=== PATIENT | female | born 1950 | race Hispanic/Latino ===

== ENCOUNTER 2024-04-03 07:27 | Observation (INO) | payer OTHER ==
[2024-03-30 14:19] LABS: BASOPHILS # (AUTO) 0.04 K/uL (0.00-0.20); BASOPHILS % (AUTO) 0.4 % (0.0-5.0); EOSINOPHILS # (AUTO) 0.15 K/uL (0.00-0.70); EOSINOPHILS % (AUTO) 1.6 % (0.0-8.0); HEMATOCRIT 42.4 % (36-48); IMMATURE GRANULOCYTE ABSOLUTE 0.03 K/uL (0-1); LYMPHOCYTES # (AUTO) 3.3 K/uL (1.0-4.8); LYMPHOCYTES % (AUTO) 34.7 % (21.0-51.0); MEAN CORPUSCULAR HEMOGLOBIN 30.8 pg (27.0-33.0); MEAN CORPUSCULAR VOLUME 93.2 fL (79-99); MONOCYTES # (AUTO) 0.5 K/uL (0.1-1.0); MONOCYTES % (AUTO) 4.9 % (3.0-13.0); NEUTROPHILS # (AUTO) 5.4 K/uL (1.8-7.7); NEUTROPHILS % (AUTO) 58.1 % (40.0-77.0); PLATELET COUNT (AUTO) 262 K/uL (130-400); RED BLOOD CELL COUNT(AUTO) 4.55 MIL/uL (4.00-5.50); RED CELL DISTRIBUTION WIDTH 16.5 % (11.0-15.5); WHITE BLOOD COUNT (AUTO) 9.4 K/uL (4.8-10.8)
[2024-03-30 14:41] LABS: ALBUMIN 3.7 g/dL (3.5-5.0); POTASSIUM 3.7 mmol/L (3.5-5.1)
[2024-03-30 14:43] LABS: INR 0.95 (0.85-1.15); PROTHROMBIN TIME 11.2 SEC (9.6-11.6)
[2024-03-30 14:44] LABS: PARTIAL THROMBOPLASTIN TIME 26.2 SEC (26.3-35.5)
[2024-03-30 15:22] VITALS: BP 134/67; PULSE 96; RESP 19
[2024-04-03] VITALS (29 sets, daily range): BP systolic 99–131; BP diastolic 50–70; PULSE 71–96; RESP 14–18; O2SAT 96–97
[~2024-04-03] VITALS: Ht 165.1 cm; Wt 100.1 kg
[~2024-04-03 07:27] MED LIST: AEC81 PO; ALBUTEROL SULFATE IH; ASCO100033 PO; ATOR20TA65 PO; BACL10TA PO; BUPR-113 PO; CELE-125 PO; CHOL200074 PO; CYAN-106 PO; DULO60CA64 PO; FOLIC ACID PO; GABA-529 PO; LEVO75TA10 PO; LOSA25TA41 PO; METF-444 PO; METH2.5T6 PO; OMEP40CA21 PO; REMICADE IV; SEMA0.258 SQ; TYLENOL ARTHRITIS PO; ZOLP5TAB8 PO
[2024-04-03 08:10] LABS: APPEARANCE,URINE CLOUDY (CLEAR); BILIRUBIN,URINE NEGATIVE (NEGATIVE); COLOR,URINE YELLOW (YELLOW); GLUCOSE, URINE (UA) NEGATIVE (NEGATIVE); KETONES,URINE NEGATIVE (NEGATIVE); LEUKOCYTE ESTERASE ,URINE 500 Leu/uL (NEGATIVE); NITRATE,URINE NEGATIVE (NEGATIVE); OCCULT BLOOD,URINE NEGATIVE (NEGATIVE); PH,URINE 6.5 (5.0-8.0); PROTEIN,URINE 10 mg/dL (NEGATIVE); UROBILINOGEN,URINE 0.2 mg/dL (0.2-1.0)
[2024-04-03 08:30] LABS: ADD UA MICROSCOPIC YES
[2024-04-03 08:41] LABS: BACTERIA,URINE RARE /HPF (None Seen); MUCUS,URINE FEW LPF (None Seen); SQUAMOUS EPITHELIAL CELL,UR FEW /HPF (0-2); TRANSITIONAL EPI CELLS,URINE MOD /HPF (None Seen); WBC,URINE 26-50 /HPF (0-1)
[2024-04-03] MEDS: CEFAZOLIN SODIUM 2 GM VIAL ONE (09:03)
[2024-04-03] MEDS: 0.9%NACL 1000ML 1,000 ML IV ONE (09:03)
[2024-04-03] MEDS ORDERED: KETOROLAC 30MG VIAL (30MG/ML) ONE (09:11)
[2024-04-03] MEDS ORDERED: ROPIVACAINE 0.5% 5MG/ML 30ML ONE ×2 (09:11→09:28)
[2024-04-03] MEDS: ALBUTEROL 0.083% 2.5 MG/3 ML INH IH ONE (09:21)
[2024-04-03] MEDS ORDERED: KETAMINE 50MG/ML SYRINGE 50 MG/ML DISP.SYRIN ONE (09:28)
[2024-04-03] MEDS ORDERED: LIDOCAINE PF 100MG/5ML (2%) SYRINGE 5ML ONE (09:29)
[2024-04-03] MEDS ORDERED: FENTANYL CITRATE PF 50 MCG/1 ML 2ML VIAL ONE (09:30)
[2024-04-03] MEDS ORDERED: PROPOFOL 10 MG/ML 20ML VIAL IV ONE (09:30)
[2024-04-03] MEDS ORDERED: ROCURONIUM BROMIDE 10MG/1ML 5ML VL ONE ×2 (09:30→10:24)
[2024-04-03] MEDS ORDERED: ONDANSETRON 4MG INJ ONE (09:47)
[2024-04-03] MEDS ORDERED: DEXAMETHASONE SOD PHOSPHATE 10MG/ML 1ML VIAL ONE (09:47)
[2024-04-03] MEDS ORDERED: TRANEXAMIC ACID 1000MG/10ML ONE ×2 (10:05→11:23)
[2024-04-03] MEDS: KETOROLAC 60 MG VIAL (30MG/ML) IM ONE ×2 (10:18)
[2024-04-03] MEDS ORDERED: PHENYLEPHRINE HCL 10 MG/ML 1ML VIAL IV ONE (11:04)
[2024-04-03] MEDS ORDERED: GLYCOPYRROLATE 0.2 MG/ML 5 ML VIAL ONE (11:05)
[2024-04-03] MEDS ORDERED: NEOSTIGMINE METHYLSULFATE 1MG/ML IV ONE (11:05)
[2024-04-03] MEDS ORDERED: ONDANSETRON 4MG INJ IVP PRN (12:00)
[2024-04-03] MEDS ORDERED: TRAMADOL HCL 50 MG TABLET PO PRN (12:00)
[2024-04-03] MEDS ORDERED: POTASSIUM CHLORIDE 10% ELIXIR 20 MEQ/15 ML UDCUP PO PRN (12:00)
[2024-04-03] MEDS ORDERED: POTASSIUM CHLORIDE 20MEQ/100ML 100 ML IV PRN (12:00)
[2024-04-03] MEDS ORDERED: FERROUS FUMARATE 324 MG TABLET PO PRN (12:00)
[2024-04-03] MEDS: KETOROLAC 15MG/ML VIAL (15MG/ML) IV SCH (12:18)
[2024-04-03] MEDS: MEPERIDINE-PF 25 MG/ML SYG ONE ×2 (12:19→13:17)
[2024-04-03] MEDS: KETOROLAC 15MG/ML VIAL (15MG/ML) ONE (12:21)
[2024-04-03] MEDS: ACETAMINOPHEN 1,000 MG/100 ML VIAL IV ONE (14:31)
[2024-04-03] MEDS: FAMOTIDINE 20MG VIAL IV ONE (14:31)
[2024-04-03] MEDS: HYDROCODONE/ACETAMINOPHEN 5/325 MG TAB PO PRN (14:49)
[2024-04-03] MEDS: 0.9%NACL 1000ML 1,000 ML IV SCH (14:50)
[2024-04-03] MEDS ORDERED: ALBUTEROL SULFATE IH PRN (15:00)
[2024-04-03] MEDS ORDERED: SEMAGLUTIDE 0.25 MG SQ SCH (15:00)
[2024-04-03] MEDS: INSULIN HUMULIN R 100 UNIT/ML 3ML SQ SCH (16:30)
[2024-04-03] MEDS: CEFAZOLIN SODIUM 2 GM VIAL IVPB SCH (17:33)
[2024-04-03] MEDS: GABAPENTIN 100 MG CAPSULE PO SCH (20:46)
[2024-04-03] MEDS: BACLOFEN 10 MG TABLET PO SCH (20:47)
[2024-04-03] MEDS: CHOLECALCIFEROL 50 MCG PO SCH (21:00)
[2024-04-03] MEDS: ATORVASTATIN 20 MG TABLET PO SCH (22:32)
[2024-04-03] MEDS: METFORMIN HCL 500 MG TABLET PO SCH (22:32)
[2024-04-03] MEDS: DOCUSATE SODIUM 100 MG CAP PO SCH (22:32)
[2024-04-03] MEDS: FOLIC ACID 1 MG TABLET PO SCH (22:32)
[2024-04-03] MEDS: ASCORBIC ACID 500 MG TAB PO SCH (22:32)
[2024-04-03] MEDS: CYANOCOBALAMIN (VITAMIN B-12) 1,000 MCG TABLET PO SCH (22:33)
[2024-04-03] MEDS: ZOLPIDEM TARTRATE 5 MG TAB PO SCH (22:33)
[2024-04-03] MEDS: BUPROPION HCL 150 MG TABLET.SA PO SCH (22:33)
[2024-04-04 04:09] VITALS: BP 137/60; PULSE 96; RESP 18
[2024-04-04 04:38] LABS: HEMATOCRIT 32.9 % (36-48); MEAN CORPUSCULAR HEMOGLOBIN 31.1 pg (27.0-33.0); MEAN CORPUSCULAR HGB CONC 32.5 g/dL (32.0-36.0); MEAN CORPUSCULAR VOLUME 95.6 fL (79-99); RED BLOOD CELL COUNT(AUTO) 3.44 MIL/uL (4.00-5.50); RED CELL DISTRIBUTION WIDTH 16.1 % (11.0-15.5); WHITE BLOOD COUNT (AUTO) 11.3 K/uL (4.8-10.8)
[2024-04-04 04:45] LABS: CREATININE 1.1 mg/dL (0.5-1.0); POTASSIUM 3.5 mmol/L (3.5-5.1)
[2024-04-04] MEDS: LEVOTHYROXINE 75 MCG TABLET PO SCH (06:35)
[2024-04-04] MEDS: KCL 20 MEQ ERTAB PO PRN (06:36)
[2024-04-04 07:58] VITALS: BP 143/82; PULSE 94; RESP 18
[2024-04-04 08:00] VITALS: O2SAT 93
[2024-04-04] MEDS: POLYETHYLENE GLYCOL 3350 17 GM POWD.PACK PO SCH (08:21)
[2024-04-04] MEDS: CALCIUM CARB 500MG PO PRN (08:22)
[2024-04-04] MEDS: DULOXETINE HCL 30 MG CAP PO SCH (08:22)
[2024-04-04] MEDS: CELECOXIB 200 MG CAP PO SCH (08:23)
[2024-04-04] MEDS: PANTOPRAZOLE 40 MG TAB DR PO SCH (08:24)
[2024-04-04] MEDS: LOSARTAN 25 MG TABLET PO SCH (08:24)
[2024-04-04] MEDS: ASPIRIN 325MG EC TAB PO SCH (08:24)
[2024-04-04] MEDS: GABAPENTIN 100 MG CAPSULE PO SCH (08:25)
[2024-04-04 11:39] VITALS: BP 151/69; PULSE 78; RESP 17
[2024-04-04] MEDS ORDERED: KETOROLAC 15MG/ML VIAL (15MG/ML) IV PRN (12:00)
[2024-04-04] MEDS ORDERED: ALBUTEROL 0.083% 2.5 MG/3 ML INH IH PRN (13:00)
[2024-04-04] MEDS ORDERED: HYDR-4060 PO (16:07)
[2024-04-04] MEDS ORDERED: DOCU-116 PO (16:07)
[2024-04-04] MEDS ORDERED: ASPI-891 PO (16:07)
[2024-04-04 16:55] VITALS: BP 114/64; PULSE 90; RESP 17
[2024-04-06] MEDS ORDERED: BISACODYL 10 MG SUPP.RECT RC PRN (12:00)
[2024-04-10] MEDS ORDERED: METHOTREXATE SODIUM 2.5 MG TABLET PO SCH (09:00)
== END 2024-04-04 18:00 | disposition home or self-care (01) ==
LOC: DAH 07:27 → DAHIP 07:28 → 4BH 13:10
PROVIDERS: ADMIT Student in an Organized Health Care Education/Training Program; ATTEND Student in an Organized Health Care Education/Training Program
DX: M17.12 Unilateral primary osteoarthritis, left knee (principal); G89.18 Other acute postprocedural pain; E11.9 Type 2 diabetes mellitus without complications; E03.9 Hypothyroidism, unspecified; J45.909 Unspecified asthma, uncomplicated; F32.A Depression, unspecified; Z79.899 Other long term (current) drug therapy; Z98.890 Other specified postprocedural states; Z86.2 Personal history of diseases of the blood and blood-forming organs and certain disorders involving the immune mechanism
CPT/HCPCS: 82040; 80048 ×2; 85025; 85610; 85730; 84134; 86140; 36415 ×2; 93005; 87641; 96365; 96375; 64447; 27447; 87077; 87088; 87186; 82948 ×6; 81001; 73560; 97161; 97116 ×4; 94640; 96376; 96366; 85027; 73562; 97530 ×6; J1815; G0378 ×26; A4663; A4215 ×2; J3490 ×7; J3010; J1100; J7030; J2001; J2704; J2405; J1885 ×5; J2710; J2175 ×2; J2795 ×3; J2371; J0690 ×3; G0168; A4649 ×2; C1713; C1776; A4930; A6255; A4223; A4213; A4222; A4221; 94664